=== PATIENT | female | born 1955 | race African-American/Black ===

== ENCOUNTER 2022-07-26 15:41 | Emergency (ER) | payer MEDICARE, OTHER ==
[~2022-07-26] VITALS: Ht 165.1 cm; Wt 77.1 kg
[2022-07-26] MEDS ORDERED: ACETAMINOPHEN ES 500 MG TABLET PO ONE (16:00)
[2022-07-26] MEDS ORDERED: ACETAMINOPHEN ES 500 MG TABLET ONE (17:36)
[2022-07-26] MEDS ORDERED: LOSA25TA27 (18:13)
[2022-07-26] MEDS ORDERED: INSU100I19 SQ (18:13)
[2022-07-26] MEDS ORDERED: INSU100I4 SQ (18:13)
[2022-07-26] MEDS ORDERED: PRED-170 (18:13)
[2022-07-26] MEDS ORDERED: TACR1CAP7 MT (18:13)
[2022-07-26] MEDS ORDERED: TRAM50TA2 PO (18:23)
--- NOTE | 2022-07-26 18:29 | NUR ---
Applied foam cervical collar for immobilization and comfort, per MD order.
--- NOTE | 2022-07-26 19:03 | NUR ---
Gave pt and () RX and d/c instructions, both verbalized understanding.
== END 2022-07-26 18:45 | disposition home or self-care (01) ==
LOC: ER 15:41
DX: S50.11XA Contusion of right forearm, initial encounter (principal); V49.49XA Driver injured in collision with other motor vehicles in traffic accident, initial encounter; Y92.414 Local residential or business street as the place of occurrence of the external cause; M25.551 Pain in right hip; M54.2 Cervicalgia; Z88.0 Allergy status to penicillin; Z94.0 Kidney transplant status; E11.9 Type 2 diabetes mellitus without complications
CPT/HCPCS: 70450; 71045; 72125; 73090; 73502; A4663; A9150